=== PATIENT | male | born 1940 | race Caucasian/White ===

== ENCOUNTER 2021-02-19 11:13 | Emergency (ER) | payer MEDICARE, BC ==
[~2021-02-19] VITALS: Ht 182.9 cm; Wt 113.6 kg
[~2021-02-19 11:13] MED LIST: ASPI81TA52 PO; ATOR20TA PO; LYR25C PO; NITR0.4T51 SL; PIOG15TA8 PO
[2021-02-19 11:33] VITALS: BP 133/86
[2021-02-19] MEDS ORDERED: DOXY100C77 PO (12:58)
== END 2021-02-19 13:10 | disposition home or self-care (01) ==
LOC: ER 11:14
DX: R91.8 Other nonspecific abnormal finding of lung field (principal); Z20.822 Contact with and (suspected) exposure to COVID-19; R63.0 Anorexia; R50.9 Fever, unspecified; R53.83 Other fatigue; R19.7 Diarrhea, unspecified; E11.9 Type 2 diabetes mellitus without complications; Z79.82 Long term (current) use of aspirin; Z79.2 Long term (current) use of antibiotics; Z79.899 Other long term (current) drug therapy
CPT/HCPCS: 71045; 87635; 99284; C9803

== ENCOUNTER 2021-08-28 08:12 | Day surgery (SDC) | payer MEDICARE, BC ==
[2021-08-27 09:02] LABS: BASOPHILS % (AUTO) 0.6 % (0-1); EOSINOPHILS # (AUTO) 0.1 X10'3 (0-0.9); EOSINOPHILS % (AUTO) 2.1 % (0-6); HEMATOCRIT 45.2 % (42.0-52.0); HEMOGLOBIN 15.3 g/dl (14.0-17.9); LYMPHOCYTES # (AUTO) 1.6 X10'3 (1.1-4.8); LYMPHOCYTES % (AUTO) 24.6 % (21-51); MEAN CORPUSCULAR HEMOGLOBIN 33.3 PG (27.0-31.0); MEAN CORPUSCULAR HGB CONC 33.8 g/dL (33.0-36.5); MEAN CORPUSCULAR VOLUME 98.3 FL (78-98); MEAN PLATELET VOLUME 7.3 FL (7.4-10.4); MONOCYTES # (AUTO) 0.5 X10'3 (0-0.9); NEUTROPHILS # (AUTO) 4.3 X10'3 (1.8-7.7); NEUTROPHILS % (AUTO) 64.7 % (42-75); PLATELET COUNT 183 X10'3 (140-440); RED CELL DISTRIBUTION WIDTH 13.2 % (11.5-14.5); WHITE BLOOD COUNT 6.7 X10'3 (4.5-11.0)
[2021-08-27 09:12] LABS: ALANINE AMINOTRANSFERASE 35 U/L (12-78); ALBUMIN 3.7 G/DL (3.4-5.0); ALKALINE PHOSPHATASE 74 IU/L (46-116); ANION GAP 13 (8-16); ASPARTATE AMINO TRANSFERASE 21 U/L (10-37); BILIRUBIN,TOTAL 0.6 MG/DL (0.1-1.0); BLOOD UREA NITROGEN 24 MG/DL (7-18); BUN/CREATININE RATIO 21.2 (5.4-32.0); CHLORIDE 107 MMOL/L (99-107); CREATININE 1.13 MG/DL (0.60-1.10); GLUCOSE 125 MG/DL (70-104); POTASSIUM 4.7 MMOL/L (3.5-5.1); SODIUM 141 MMOL/L (135-145); TOTAL CARBON DIOXIDE 21.5 MMOL/L (24-32); TOTAL PROTEIN 7.4 G/DL (6.4-8.2); eGFR 63 ML/MIN
[2021-08-27 10:13] LABS: PARTIAL THROMBOPLASTIN TIME 26 SECONDS (22-32)
[~2021-08-28] VITALS: Ht 185.4 cm; Wt 114.0 kg
[2021-08-28] VITALS (12 sets, daily range): BP systolic 109–128; BP diastolic 54–99
[2021-08-28] MEDS ORDERED: dextrose 50%-water 50ml dispensing syringe IV PRN ×2 (08:25)
[2021-08-28] MEDS ORDERED: MESSAGE TO PHARMACY PO ONE (08:25)
[2021-08-28] MEDS ORDERED: diphenhydrAMINE 25mg capsule PO PRN (08:25)
[2021-08-28] MEDS ORDERED: glucagon, human recombinant 1mg kit SUBCUT PRN (08:25)
[2021-08-28] MEDS ORDERED: insulin Lispro (HumaLOG) vial - multi-dose SQ SCH (08:25)
[2021-08-28] MEDS ORDERED: normal saline 1,000 ML IV SCH (08:25)
[2021-08-28] MEDS ORDERED: nitroGLYCERIN 0.4mg SUBLingual tab SL PRN ×2 (08:25→12:05)
[2021-08-28] MEDS ORDERED: LORazepam 0.5 MG tablet PO PRN (08:25)
[2021-08-28] MEDS ORDERED: dextrose ORAL solution 15 GM/59 ML bottle PO PRN ×2 (08:25)
[2021-08-28] MEDS ORDERED: NORT10CA2 PO (08:50)
[2021-08-28] MEDS ORDERED: DICL-182 PO (08:50)
[2021-08-28] MEDS ORDERED: FLU VACC QS2021-22(6MOS UP)/PF 60 MCG/0.5 ML SYRINGE IM ONE (09:30)
[2021-08-28] MEDS ORDERED: midazolam 1 mg/ML 2ml injection ONE (10:05)
[2021-08-28] MEDS ORDERED: fentaNYL/PF 50MCG/1 ML 2ML syringe ONE (10:06)
[2021-08-28] MEDS ORDERED: heparin 1,000unit/ml 10ml vial 10 ML ONE (10:06)
[2021-08-28] MEDS ORDERED: LIDOcaine 1% (10mg/ml)w/preservative injection 20ml MDV ONE (10:06)
[2021-08-28] MEDS ORDERED: iohexol 350MG/ML 100ml bottle IV ONE (10:06)
[2021-08-28] MEDS ORDERED: iohexol 350 MG/ML 50ML vial IV ONE (10:06)
[2021-08-28] MEDS ORDERED: HYDROmorphone 1 mg/ml syringe ONE (11:24)
[2021-08-28] MEDS ORDERED: ondansetron/PF 4mg/2ml inj IV PRN (12:00)
[2021-08-28] MEDS ORDERED: normal saline 1000ml 1,000 ML IV SCH (12:00)
[2021-08-28] MEDS ORDERED: HYDROcodone/acetaminophen 5mg/325mg tablet PO PRN (12:05)
[2021-08-28] MEDS ORDERED: OXAZEpam 15mg capsule PO PRN (12:05)
[2021-08-28] MEDS ORDERED: proCHLORperazine 10 MG/2 ml inj IV PRN (12:05)
[2021-08-28] MEDS ORDERED: HYDROcodone/acetaminophen 10/325mg tab PO PRN (12:05)
[2021-08-28] MEDS ORDERED: insulin glargine (Lantus) pen - multi-dose SQ SCH (21:00)
== END 2021-08-28 17:50 | disposition home or self-care (01) ==
LOC: SSTAY O 08:12
PROVIDERS: ATTEND Internal Medicine Cardiovascular Disease
DX: R94.39 Abnormal result of other cardiovascular function study (principal); I25.10 Atherosclerotic heart disease of native coronary artery without angina pectoris; E78.5 Hyperlipidemia, unspecified; I25.2 Old myocardial infarction; E11.22 Type 2 diabetes mellitus with diabetic chronic kidney disease; N18.30 Chronic kidney disease, stage 3 unspecified; M13.88 Other specified arthritis, other site; M47.9 Spondylosis, unspecified; Z95.5 Presence of coronary angioplasty implant and graft; Z79.01 Long term (current) use of anticoagulants; Z87.891 Personal history of nicotine dependence; Z96.653 Presence of artificial knee joint, bilateral; Z98.890 Other specified postprocedural states; Z82.49 Family history of ischemic heart disease and other diseases of the circulatory system
CPT/HCPCS: 36415; 71046; 80053; 82948; 85025; 85610; 85730; 93005; 93458; 99152; C1760; C1769; J1170; J1644; J2001; J2250; J3010; J7030; Q0163; Q9967; 99153; A4620; A6258; J1815

== ENCOUNTER 2021-12-12 11:55 | Inpatient (IN) | payer MEDICARE, BC ==
[2021-12-05 16:11] LABS: BASOPHILS % (AUTO) 0.4 % (0-1); EOSINOPHILS # (AUTO) 0.2 X10'3 (0-0.9); EOSINOPHILS % (AUTO) 1.8 % (0-6); LYMPHOCYTES # (AUTO) 1.8 X10'3 (1.1-4.8); MEAN CORPUSCULAR HEMOGLOBIN 33.1 PG (27.0-31.0); MEAN CORPUSCULAR HGB CONC 34.6 g/dL (33.0-36.5); MEAN CORPUSCULAR VOLUME 95.8 FL (78-98); MEAN PLATELET VOLUME 7.3 FL (7.4-10.4); MONOCYTES # (AUTO) 0.7 X10'3 (0-0.9); MONOCYTES % (AUTO) 7.9 % (2-12); NEUTROPHILS # (AUTO) 5.8 X10'3 (1.8-7.7); NEUTROPHILS % (AUTO) 68.9 % (42-75); PRE OP HEMATOCRIT 44.8 % (42.0-52.0); PRE OP HEMOGLOBIN 15.5 g/dL (14.0-17.9); PRE OP PLATELET COUNT 205 X10'3 (140-440); RED BLOOD COUNT 4.67 X10'6 (4.70-6.10); RED CELL DISTRIBUTION WIDTH 13.3 % (11.5-14.5)
[2021-12-05 16:21] LABS: PRE OP INR 1.1 INR; PRE OP PROTIME 11.3 SECONDS (9.0-12.0)
[2021-12-05 16:41] LABS: ALBUMIN/GLOBULIN RATIO 1.1 (1.1-1.5); ALKALINE PHOSPHATASE 83 IU/L (46-116); BLOOD UREA NITROGEN 19 MG/DL (7-18); BUN/CREATININE RATIO 15.6 (5.4-32.0); CALCIUM 9.8 MG/DL (8.5-10.1); CHLORIDE 102 MMOL/L (99-107); CREATININE 1.22 MG/DL (0.60-1.10); PRE OP ALT 32 U/L (30-65); PRE OP ANION GAP 11 (8-16); PRE OP AST 23 U/L (10-37); PRE OP BILIRUB, TOTAL 0.6 MG/DL (0.0-1.0); PRE OP GLUCOSE 122 MG/DL (70-104); PRE OP POTASSIUM 4.5 MMOL/L (3.4-5.1); PRE OP SODIUM 139 MMOL/L (135-145); TOTAL CARBON DIOXIDE 25.7 MMOL/L (24-32); TOTAL PROTEIN 7.6 G/DL (6.4-8.2); eGFR 57 ML/MIN
[~2021-12-12] VITALS: Ht 182.9 cm; Wt 115.0 kg
[2021-12-12] VITALS (20 sets, daily range): BP systolic 112–172; BP diastolic 50–109
[~2021-12-12 11:55] MED LIST changes: -LYR25C PO; +MELO-102 PO; -NITR0.4T51 SL; +NORT10CA2 PO; +cefazolin/dext.iso 2gm/50ml IV ONE; +famotidine 20mg tablet PO ONE; +ringers solution, lacted 1,000 ML IV SCH; +tranexamic acid 650mg tablet PO ONE; +vancomycin 1,500 MG in NS 300ml IV soln IV ONE
[2021-12-12] MEDS ORDERED: morphine 4 MG/ML inj SYRINge IV ONE (12:45)
[2021-12-12] MEDS ORDERED: ROPIVAcaine 0.5% (5mg/ml) 30ml vial ONE ×2 (15:10→15:30)
[2021-12-12] MEDS ORDERED: ketorolac trometh. 30mg/ml inj. ONE (15:10)
[2021-12-12] MEDS ORDERED: fentaNYL/PF 50MCG/1 ML 2ML syringe ONE (15:27)
[2021-12-12] MEDS ORDERED: MIDAZolam 1 MG/ML 5ML VIAL ONE (15:27)
[2021-12-12] MEDS ORDERED: propofol inj 20 ML IV ONE (15:29)
[2021-12-12] MEDS ORDERED: morphine 2 MG/ML inj. syringe IV PRN (17:00)
[2021-12-12] MEDS ORDERED: ondansetron/PF 4mg/2ml inj IV PRN ×2 (17:00→17:45)
[2021-12-12] MEDS ORDERED: morphine 4 MG/ML inj SYRINge IV PRN (17:00)
[2021-12-12] MEDS ORDERED: ROPIVAcaine 0.2% (10 MG/5 ML) BOLUS INJECTION INTERSCALE PRN (17:00)
[2021-12-12] MEDS ORDERED: proCHLORperazine 10 MG/2 ml inj IV PRN (17:00)
[2021-12-12] MEDS ORDERED: ROPIVAcaine 0.2%/PF PUMP/bolus 545 ML INTERSCALE SCH (17:00)
[2021-12-12] MEDS ORDERED: ringers solution, lacted 1,000 ML IV SCH (17:00)
[2021-12-12] MEDS ORDERED: meperidine/PF 25mg/ml syringe IV PRN ×3 (17:00)
[2021-12-12] MEDS ORDERED: magnesium hydroxide 30ml (MOM) UD suspension PO PRN (17:45)
[2021-12-12] MEDS ORDERED: diphenhydrAMINE 25mg capsule PO PRN ×2 (17:45)
[2021-12-12] MEDS ORDERED: bisacodyl 10mg suppository rectal RC PRN (17:45)
[2021-12-12] MEDS ORDERED: oxyCODONE IR 5mg (immed. release) tablet PO PRN ×2 (17:45)
[2021-12-12] MEDS ORDERED: HYDROmorphone inj. 0.5 MG/0.5 ML DISP.SYRIN IV PRN (17:45)
[2021-12-12] MEDS ORDERED: acetaminophen 325mg tablet PO PRN (17:45)
--- NOTE | 2021-12-12 17:59 | NUR ---
Received from OR via , accompanied by Anesthesiologist DR FELIPE and report given by Anesthesiolgist. PT PREENTS WITH 18G RIGHT AC, SKYEG AON RIGHT SHOULDER DRY AND INTACT. VSS. Addendum: 12/12/21 at 195 by Traci Walker RN, RN Amended: Links added.
--- NOTE | 2021-12-12 19:39 | NUR ---
Report called to receiving nurse CECIL MATA. [facility]. PT PLACED IN POSITION OF COMFORT WITH BED IN LOW LOCKED POSITION CALL LIGHT WITHIN REACH. Special Issues communicated to receiving nurse. Addendum: 12/12/21 at 1956 by Traci Walker RN RN Amended: Links added.
[2021-12-12] MEDS ORDERED: VANCOMYCIN 1GM/200ML IVPB 200 ML IV SCH (20:00)
[2021-12-12] MEDS ORDERED: sennosides 8.6mg tablet PO SCH (21:00)
[2021-12-12] MEDS ORDERED: nortriptyline 10mg capsule PO SCH (21:00)
[2021-12-12] MEDS: acetaminophen 325mg tablet PO SCH ×2 (21:35→22:35)
[2021-12-12] MEDS: potassium cl 20mEq in 1/2 NS 1,000 ML IV SCH (21:36)
[2021-12-13] MEDS: ceFAZolin/D5W- 1GM premix 50 ML IV SCH ×2 (01:05→07:32)
[2021-12-13] MEDS: potassium cl 20mEq in 1/2 NS 1,000 ML IV SCH ×2 (01:45→09:45)
[2021-12-13] MEDS: acetaminophen 325mg tablet PO SCH ×2 (02:53→07:34)
[2021-12-13] MEDS: HYDROmorphone 1 mg/ml syringe IV PRN ×2 (02:53→07:58)
--- NOTE | 2021-12-13 06:34 | NUR ---
Patient in room [facility]. I have received report from COY Gordon and had the opportunity to ask questions and assume patient care.
[2021-12-13 07:22] LABS: BASOPHILS % (AUTO) 0.2 % (0-1); EOSINOPHILS % (AUTO) 0 % (0-6); HEMATOCRIT 37.9 % (42.0-52.0); HEMOGLOBIN 13.3 g/dl (14.0-17.9); LYMPHOCYTES # (AUTO) 0.7 X10'3 (1.1-4.8); LYMPHOCYTES % (AUTO) 6.9 % (21-51); MEAN CORPUSCULAR HEMOGLOBIN 33.6 PG (27.0-31.0); MEAN CORPUSCULAR VOLUME 95.9 FL (78-98); MEAN PLATELET VOLUME 7.2 FL (7.4-10.4); MONOCYTES # (AUTO) 1.4 X10'3 (0-0.9); MONOCYTES % (AUTO) 13.3 % (2-12); NEUTROPHILS # (AUTO) 8.7 X10'3 (1.8-7.7); NEUTROPHILS % (AUTO) 79.6 % (42-75); PLATELET COUNT 196 X10'3 (140-440); RED BLOOD COUNT 3.96 X10'6 (4.70-6.10); RED CELL DISTRIBUTION WIDTH 13.1 % (11.5-14.5); WHITE BLOOD COUNT 10.9 X10'3 (4.5-11.0)
[2021-12-13 08:00] VITALS: BP 159/85
[2021-12-13] MEDS ORDERED: aspirin 81mg, enteric-coated 1 TAB TABLET.DR PO SCH (08:00)
[2021-12-13] MEDS ORDERED: atorvastatin 20mg tablet PO SCH (08:00)
[2021-12-13] MEDS ORDERED: pioglitazone 15mg tablet PO SCH (08:00)
[2021-12-13] MEDS ORDERED: MELOXICAM 15 MG TABLET PO SCH (08:00)
[2021-12-13 08:08] LABS: ANION GAP 13 (8-16); CHLORIDE 96 MMOL/L (99-107); POTASSIUM 4.6 MMOL/L (3.5-5.1); SODIUM 133 MMOL/L (135-145)
[2021-12-13] MEDS ORDERED: aspirin 325mg tablet PO SCH (08:30)
[2021-12-13] MEDS ORDERED: ketorolac tromethamine 15mg/ml inj. IV ONE (08:50)
[2021-12-13] MEDS ORDERED: HYDROcodone/acetaminophen 10/325mg tab PO PRN ×2 (08:50)
[2021-12-13 12:00] VITALS: BP 153/93
--- NOTE | 2021-12-13 15:04 | NUR ---
Pt s/p reverse prosthesis right TSA seen at bedside provided with written and verbal protein education. Pt reports having protein drinks at home in addition to protein rich foods to assist with post-op wound healing. Pt denies need for texture modification to assist with meals despite surgery to shoulder. Pt denies food allergies or difficulty chewing/swallowing. Pt reports frequent constipation and agrees to prunes and prune juice with next meal to assist with bowel regularity, d/w dietary. Pt provided with RD contact information and encouraged to reach out if needed. Will remain available. Addendum: 12/13/21 at [address] Amended: Links added.
[2021-12-13] MEDS ORDERED: celeCOXIB 100mg capsule PO SCH (20:00)
[2021-12-14] MEDS ORDERED: acetaminophen 325mg tablet PO PRN (17:45)
== END 2021-12-13 16:38 | disposition home or self-care (01) | DRG 483 ==
LOC: PAS IN 11:55 → SUR 3N 19:40
PROVIDERS: ADMIT Orthopaedic Surgery; ATTEND Orthopaedic Surgery
PROC: 0LS30ZZ Reposition Right Upper Arm Tendon, Open Approach (ICD-10-PCS; 2021-12-12)
PROC: 3E0T3BZ Introduction of Anesthetic Agent into Peripheral Nerves and Plexi, Percutaneous Approach (ICD-10-PCS; 2021-12-12)
PROC: 3E0T33Z Introduction of Anti-inflammatory into Peripheral Nerves and Plexi, Percutaneous Approach (ICD-10-PCS; 2021-12-12)
PROC: 0RRJ00Z Replacement of Right Shoulder Joint with Reverse Ball and Socket Synthetic Substitute, Open Approach (ICD-10-PCS; principal; 2021-12-12 15:31)
DX: M19.011 Primary osteoarthritis, right shoulder (principal); M65.811 Other synovitis and tenosynovitis, right shoulder; M75.101 Unspecified rotator cuff tear or rupture of right shoulder, not specified as traumatic
CPT/HCPCS: 36415; 71046; 80051; 80053; 82948; 83036; 85025; 85610; 85730; 87081; 97110; 97116; 97162; 97530; A4215; A4565; A4618; A7000; C1776; G0378; J0690; J1170; J1885; J2250; J2270; J2704; J2795; J3010; J3370; J3480; J3490; J7040; J7120; U0003; U0005